=== PATIENT | female | born 1975 | race Caucasian/White ===

== ENCOUNTER 2018-04-03 06:50 | Emergency (ER) | payer MEDICAID ==
[~2018-04-03] VITALS: Ht 167.6 cm; Wt 64.5 kg
[~2018-04-03 06:50] MED LIST: AMOX500C6 PO; IBUP-1542 PO
[2018-04-03 06:51] VITALS: BP 126/75; PULSE 79; RESP 20; Ht 167.6 cm; Wt 64.5 kg
[2018-04-03] MEDS ORDERED: IBUP-1542 PO (08:00)
--- NOTE | 2018-04-03 16:30 | ERD ---
ER Documentation Chief Complaint Chief Complaint Complains of lower back pain x 3 days HPI 43-year-old female complaining of left lower back pain times 3 days. Patient states that she went over to steel pickler her child shortly before the onset of back pain. The pain has been constant, worse with movement. Reports pain radiates to the lateral left leg. She reports pain as a dull ache, more of a discomfort and irritation and severe pain. Denies fall or any other trauma. Denies urinary incontinence. Denies dysuria. Next fever or chills. ROS All systems reviewed and are negative except as per history of present illness. Medications Home Meds Active Scripts Ibuprofen* (Motrin*) 600 Mg Tab, 600 MG PO Q6H PRN for PAIN AND OR ELEVATED TEMP, #30 TAB Prov:INDIGOEVERETTE X. QUALITY TECH 04/03/18 Reported Medications Amoxicillin* (Amoxil*) 500 Mg Capsule, 500 MG PO BID 11/04/12 Ibuprofen* (Ibuprofen*) 600 Mg Tablet, 600 MG PO Q6 PRN LAST TAKEN AT 1100 10/28/12 Allergies Allergies: Coded Allergies: No Known Allergy (Verified , 11/04/12) PMhx/Soc History of Surgery: Yes (C-SECTIONS) Anesthesia Reaction: No Hx Neurological Disorder: No Hx Respiratory Disorders: No Hx Cardiac Disorders: Yes (hypercholesterolemia) Hx Psychiatric Problems: No Hx Miscellaneous Medical Probl: No Hx Alcohol Use: No Hx Substance Use: No Hx Tobacco Use: No Physical Exam Vitals Vital Signs Date Temp Pulse Resp B/P (MAP) Pulse Ox O2 O2 Flow FiO2 Time Delivery Rate 04/03/18 98.2 79 20 126/75 99 06:51 (92) Physical Exam General: Well-developed, well-nourished, conscious and coherent, in no distress Skin: Warm and dry without rash, good texture and turgor Head: Normocephalic without evidence of trauma Neck: Supple without meningismus or adenopathy. Carotids are equal. Trachea midline. No bruits or JVD Chest: Normal AP diameter. Good expansion without retractions. Nontender. Lungs are clear to auscultate bilaterally with good tidal volume Back: Without spinal or CVA tenderness. Mild muscle tenderness in the left lower lumbar region. Straight leg raise negative bilaterally. Extremities: Full range of motion. Good strength bilaterally. No erythema, ecchymosis, or edema. Peripheral pulses are intact. Sensation intact Neuro: Alert and oriented 4, GCS 15. Procedures/MDM Well-appearing 43-year-old female presents the ED for left-sided lower back pain times 3 days. History exam findings are consistent with muscle strain secondary to improper lifting. Patient does not have any midline spinal tenderness. I doubt spinal fracture, subluxation, or disc herniation. I doubt spinal epidural abscess, cauda equina syndrome. I do not think any further workup is indicated. Patient given instructions on how to lifting properly without causing back strain. Patient appears well, stable for discharge and outpatient management. Medical decision making shared with patient and family. Education provided to patient and family. Patient and family expressed understanding of the plan. Medications on discharge: Ibuprofen as. Follow-up: Primary care provider in 1 day or return to ED if worse. Disclaimer: Inadvertent spelling and grammatical errors are likely due to EHR/dictation software use and do not reflect on the overall quality of patient care. Also, please note that the electronic time recorded on this note does not necessarily reflect the actual time of the patient encounter. Departure Diagnosis: Primary Impression: Back strain Condition: Stable Patient Instructions: Back Safety: Lifting, Back Pain (Acute Or Chronic) [facility] Usted se esqueda hecho un examen mdico de control que le indica que no est en floresita condicin que requiera tratamiento urgente en el Departamento de Emergencia. Un estudio ms profundo y el tratamiento de sam condicin pueden esperar sin ningn riesgo hasta que usted sea atendida/o en el consultorio de sam mdico o floresita clnica. Es responsabilidad suya arreglar floresita robina para el seguimiento del kelly. MANEJO DE CONDICIONES NO URGENTES EN EL FUTURO 1) Si usted tiene un mdico de atencin primaria: Usted debera llamar a sam mdico de atencin primaria antes de venir al departamento de emergencia. Despus de las horas de consultorio, sam doctor o sam asociado/a est disponible por telfono. El mdico o enfermero de cristóbal en el servicio telefnico puede asesorarle por stephanie medio para atender el problema, o kelly contrario se puede programar floresita robina. 2) Si usted no tiene un mdico de atencin primaria: Llame al mdico o clnica de referencia que aparece abajo tiffanie las horas de consultorio para hacer floresita robina para que le vean. CLINICAS: [place] [id number] [phone] [facility] [phone] [id number] [facility] [phone] [place] [address] [phone] [place] [address] [phone] [facility] [phone] [address] Additional Instructions: Llame al doctor nombrado abajo (Referral Sources) MAANA y luisito floresita ROBINA PARA DENTRO DE FLORESITA SEMANA. Dgale a la secretaria que nosotros le instruimos hacer esta robina.Avise o llame si sam condicin se empeora antes de la robina. EVERETTE SOOD NP Apr 03, 2018 16:30
== END 2018-04-03 08:08 | disposition home or self-care (01) ==
LOC: FTE 06:50
DX: S39.012A Strain of muscle, fascia and tendon of lower back, initial encounter (principal); R40.2412 Glasgow coma scale score 13-15, at arrival to emergency department; X58.XXXA Exposure to other specified factors, initial encounter; Y92.9 Unspecified place or not applicable
CPT/HCPCS: 99282